=== PATIENT | male | born 1990 | race Caucasian/White ===

== ENCOUNTER 2016-07-02 11:18 | Emergency (ER) | payer SELFPAY ==
[2016-07-02 11:20] VITALS: BP 135/69; PULSE 80; RESP 16; TEMP 97.4; O2SAT 100
== END 2016-07-02 12:20 | disposition left against medical advice (07) ==
LOC: NED 11:18
DX: Z53.21 Procedure and treatment not carried out due to patient leaving prior to being seen by health care provider (principal)
CPT/HCPCS: 99281